=== PATIENT | male | born 1990 | race Two or more races ===

== ENCOUNTER 2017-10-31 13:38 | Emergency (ER) | payer OTHER ==
[~2017-10-31] VITALS: Ht 175.3 cm; Wt 60.3 kg
== END 2017-10-31 15:01 | disposition home or self-care (01) ==
LOC: ED 13:38
DX: M25.561 Pain in right knee (principal)

== ENCOUNTER 2020-09-15 23:01 | Emergency (ER) | payer OTHER ==
[~2020-09-15] VITALS: Ht 172.7 cm; Wt 68.0 kg
[2020-09-15] MEDS ORDERED: IBUPROFEN600 MG PO (23:17)
[2020-09-15] MEDS ORDERED: ACETAMINOPHEN325 M1 PO (23:17)
[2020-09-15] MEDS ORDERED: PENICILLIN V P500 MG PO (23:17)
[2020-09-15] MEDS ORDERED: CLINDAMYCIN HC300 MG PO (23:19)
== END 2020-09-15 23:35 | disposition home or self-care (01) ==
LOC: ED 23:01
DX: K04.7 Periapical abscess without sinus (principal); F17.200 Nicotine dependence, unspecified, uncomplicated; Z79.899 Other long term (current) drug therapy
CPT/HCPCS: 99282